=== PATIENT | male | born 1955 | race African-American/Black ===

== ENCOUNTER 2021-04-06 08:02 | Emergency (ER) | payer SELFPAY ==
[2021-04-06 08:16] VITALS: BP 148/77; PULSE 65; TEMP 98.3; BMI 29.0
[2021-04-06 09:00] LABS: BASO % 0.6 % (0-2.0); EOS % 1.4 % (0-4.5); HEMATOCRIT 48.9 % (35.4-49); HEMOGLOBIN 16.8 GM/dL (11.7-16.9); MCH 29.3 pg (25.7-33.7); MCHC 34.4 g/dl (32.0-35.9); MEAN CELL VOLUME 85.1 fl (80-96); MONO % 4.8 % (3.8-10.2); NEUT % 69.2 % (42.8-82.8); PLATELET COUNT 337 K/MM3 (134-434); RBC 5.75 M/mm3 (4.00-5.60); RDW 14.3 % (11.9-15.9); WHITE BLOOD COUNT 7.3 K/mm3 (4.0-10.0)
[2021-04-06 09:24] LABS: EPI CELLS 12 /uL (0-25.1); HYALINE CASTS 9 /uL (0-3.1); PH,URINE 8.5 (5.0-8.0); URINE APPEARANCE TURBID; URINE BACTERIA >9,000 /uL (0-1359); URINE BILIRUBIN 1+ (NEGATIVE); URINE COLOR RED; URINE GLUCOSE (UA) NEGATIVE (NEGATIVE); URINE KETONE NEGATIVE (NEGATIVE); URINE LEUK ESTERASE 3+ (NEGATIVE); URINE NITRITE NEGATIVE (NEGATIVE); URINE PROTEIN 4+ (NEGATIVE); URINE WBC 9961 /uL (0-25.8)
[2021-04-06 09:25] LABS: ALBUMIN 3.9 g/dl (3.4-5.0); BLOOD UREA NITROGEN 13.7 mg/dL (7-18); CALCIUM 9.9 mg/dL (8.5-10.1)
[2021-04-06 09:29] LABS: BILIRUBIN,TOTAL 0.6 mg/dL (0.2-1); CREATININE 1.2 mg/dL (0.55-1.3)
[2021-04-06 09:30] LABS: TOT PROT 8.3 g/dl (6.4-8.2)
[2021-04-06 09:36] LABS: URINE RBC 2836.3 /uL (0-23.9)
[2021-04-06] MEDS ORDERED: CEFTRIAXONE 1 GM in DEXTROSE 5%-WATER - 100 ML IVPB ONE (09:37)
[2021-04-06] MEDS ORDERED: LACTATED RINGERS SOLUTION 1000 ML INFUS.BAG IV STA (09:38)
[2021-04-06] MEDS ORDERED: ACETAMINOPHEN 325 MG TABLET (FP) PO ONE (09:41)
[2021-04-06] MEDS ORDERED: ACETAMINOPHEN 325 MG TABLET (FP) ONE (09:49)
[2021-04-06] MEDS ORDERED: CEFTRIAXONE 1 GM/50 ML BAG ONE (09:50)
== END 2021-04-06 11:55 | disposition home or self-care (01) ==
LOC: JER 08:02
DX: N20.0 Calculus of kidney (principal); N30.01 Acute cystitis with hematuria
CPT/HCPCS: 36415; 74178-TC; 80053; 81003; 85025; 87086; 87186; 99285-25; Q9967